=== PATIENT | male | born 1990 | race African-American/Black ===

== ENCOUNTER 2019-01-07 07:07 | Emergency (ER) | payer SELFPAY ==
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
[2019-01-07] MEDS ORDERED: ISOVUE-370 76%-LOCM 1 ML ONE (12:16)
== END 2019-01-07 08:49 | disposition home or self-care (01) ==
LOC: ERS 07:07
DX: M79.18 Myalgia, other site (principal); M54.6 Pain in thoracic spine; M54.2 Cervicalgia; K76.89 Other specified diseases of liver; F17.210 Nicotine dependence, cigarettes, uncomplicated; V89.2XXA Person injured in unspecified motor-vehicle accident, traffic, initial encounter
CPT/HCPCS: 70450; 71260; 72125; 74177